=== PATIENT | male | born 1965 | race American Indian/Alaskan Native ===

== ENCOUNTER 2016-06-28 08:48 | Outpatient (CLI) | payer OTHER ==
[2016-06-28 09:40] LABS: INR 1.25 (0.87-1.13)
== END 2016-06-28 08:49 | disposition home or self-care (01) ==
LOC: LAB 08:48
PROVIDERS: ATTEND Internal Medicine
DX: Z79.01 Long term (current) use of anticoagulants (principal)
CPT/HCPCS: 36415; 85610

== ENCOUNTER 2016-07-03 09:23 | Outpatient (CLI) | payer OTHER ==
[2016-07-03 09:41] LABS: INR 2.37 (0.87-1.13)
== END 2016-07-03 09:24 | disposition home or self-care (01) ==
LOC: LAB 09:23
PROVIDERS: ATTEND Internal Medicine
DX: Z79.01 Long term (current) use of anticoagulants (principal)
CPT/HCPCS: 36415; 85610

== ENCOUNTER 2016-07-18 07:43 | Outpatient (CLI) | payer OTHER ==
[2016-07-18 08:02] LABS: INR 3.85 (0.87-1.13)
== END 2016-07-18 07:44 | disposition home or self-care (01) ==
LOC: LAB 07:43
PROVIDERS: ATTEND Internal Medicine
DX: Z79.01 Long term (current) use of anticoagulants (principal)
CPT/HCPCS: 36415; 85610

== ENCOUNTER 2016-07-28 09:05 | Outpatient (CLI) | payer OTHER ==
[2016-07-28 09:55] LABS: INR 3.79 (0.87-1.13)
== END 2016-07-28 09:06 | disposition home or self-care (01) ==
LOC: LAB 09:05
PROVIDERS: ATTEND Internal Medicine
DX: Z79.01 Long term (current) use of anticoagulants (principal)
CPT/HCPCS: 36415; 85610

== ENCOUNTER 2016-08-22 07:55 | Outpatient (CLI) | payer OTHER ==
[2016-08-22 08:50] LABS: INR 2.96 (0.87-1.13)
== END 2016-08-22 07:56 | disposition home or self-care (01) ==
LOC: LAB 07:55
PROVIDERS: ATTEND Internal Medicine
DX: Z79.01 Long term (current) use of anticoagulants (principal)
CPT/HCPCS: 36415; 85610

== ENCOUNTER 2016-09-14 08:05 | Outpatient (CLI) | payer OTHER ==
[2016-09-14 08:43] LABS: INR 2.22 (0.87-1.13)
== END 2016-09-14 08:06 | disposition home or self-care (01) ==
LOC: LAB 08:05
PROVIDERS: ATTEND Internal Medicine
DX: Z79.01 Long term (current) use of anticoagulants (principal)
CPT/HCPCS: 36415; 85610